=== PATIENT | male | born 1975 | race Caucasian/White ===

== ENCOUNTER 2016-10-05 17:08 | Emergency (ER) | payer OTHER ==
[~2016-10-05] VITALS: Ht 165.1 cm; Wt 74.8 kg
[2016-10-05] MEDS ORDERED: NAPROSYN500 MG PO (17:38)
[2016-10-05] MEDS ORDERED: NORFLEX100 MG PO (17:38)
[2016-10-05] MEDS ORDERED: LISINOPRIL20 MG PO (17:41)
== END 2016-10-05 17:58 | disposition home or self-care (01) ==
LOC: ER 17:08
DX: S39.012A Strain of muscle, fascia and tendon of lower back, initial encounter (principal); I10 Essential (primary) hypertension; F17.210 Nicotine dependence, cigarettes, uncomplicated; Z88.0 Allergy status to penicillin; Z88.6 Allergy status to analgesic agent; X58.XXXA Exposure to other specified factors, initial encounter; Y93.I9 Activity, other involving external motion; Y92.488 Other paved roadways as the place of occurrence of the external cause; Y99.9 Unspecified external cause status